=== PATIENT | female | born 1985 | race Caucasian/White ===

== ENCOUNTER 2016-03-23 21:09 | Emergency (ER) | payer MEDICAID, OTHER ==
[2016-03-23 21:20] VITALS: BP 127/79
[2016-03-23] MEDS ORDERED: TYLENOL PO ONE (21:34)
[2016-03-23 22:07] LABS: Basophils % (Auto) 0.5 % (0.0-1.8); Eosinophils % (Auto) 2.6 % (0.0-4.3); Hematocrit 40.4 % (30.3-42.9); Hemoglobin 13.8 gm/dl (10.1-14.3); Mean Corpuscular HGB Conc 34 % (30-34); Mean Corpuscular Hemoglobin 32 pg (28-32); Mean Corpuscular Volume 94 fl (79-97); Platelet Count 305 K/mm3 (140-440); Red Cell Distribution Width 12.4 % (13.2-15.2); White Blood Count 13.7 K/mm3 (4.5-11.0)
[2016-03-23 22:16] LABS: Bacteria,Urine 1+ /HPF (Negative); Bilirubin,Urine NEG (Negative); Blood,Urine LG (Negative); Ketones,Urine NEG (Negative); Leukocyte Esterase,Urine TR (Negative); Mucus,Urine FEW /HPF; Nitrite,Urine NEG (Negative); Protein,Urine <15 mg/dL mg/dL (Negative); Urobilinogen,Urine < 2.0 mg/dL (<2.0)
[2016-03-23 22:21] LABS: Alanine Aminotransferase 23 units/L (7-56); Albumin 4.4 g/dL (3.9-5); Albumin/Globulin Ratio 1.6 %; Alkaline Phosphatase 63 units/L (35-129); Anion Gap 19 mmol/L; BUN/Creatinine Ratio 21.66; Bilirubin,Total < 0.2 mg/dL (0.1-1.2); Blood Urea Nitrogen 13 mg/dL (7-17); Calcium 9.5 mg/dL (8.4-10.2); Carbon Dioxide 25 mmol/L (22-30); Chloride 102.5 mmol/L (98-107); Glucose 109 mg/dL (65-100); Lipase 50 units/L (13-60); Sodium 142 mmol/L (137-145); Total Protein 7.1 g/dL (6.3-8.2)
--- NOTE | 2016-03-25 19:08 | ED Elopement Review ---
ED Pt Elopement review - Results review Lab results: Laboratory Tests 03/23/16 03/23/16 03/23/16 21:47 21:47 21:58 WBC 13.7 H RBC 4.30 Hgb 13.8 Hct 40.4 MCV 94 MCH 32 MCHC 34 RDW 12.4 L Plt Count 305 Lymph % (Auto) 15.6 [place] % (Auto) 7.2 Eos % (Auto) 2.6 Baso % (Auto) 0.5 Lymph # 2.1 [place] # 1.0 H Eos # 0.4 Baso # 0.1 Seg Neutrophils % 74.1 H Seg Neutrophils # 10.1 H Sodium 142 Potassium 4.0 Chloride 102.5 Carbon Dioxide 25 Anion Gap 19 BUN 13 Creatinine 0.6 L Estimated GFR > 60 BUN/Creatinine Ratio 21.66 Glucose 109 H Calcium 9.5 Total Bilirubin < 0.2 AST 17 ALT 23 Alkaline Phosphatase 63 Troponin T < 0.010 Total Protein 7.1 Albumin 4.4 Albumin/Globulin Ratio 1.6 Lipase 50 Urine Color Yellow Urine Turbidity Clear Urine pH 5.0 Ur Specific [place] 1.021 Urine Protein <15 mg/dl Urine Glucose (UA) 50 Urine Ketones Neg Urine Blood Lg Urine Nitrite Neg Ur Reducing Substances Not Reportable Urine Bilirubin Neg Urine Ictotest Not Reportable Urine Urobilinogen < 2.0 Ur Leukocyte Esterase Tr Urine WBC (Auto) 1.0 Urine RBC (Auto) 10.0 U Epithel Cells (Auto) 2.0 Urine Bacteria (Auto) 1+ Urine Mucus Few Urine HCG, Qual Negative - Call Back decision Pt Call Back Decision: No action required
== END 2016-03-23 21:50 | disposition left against medical advice (07) ==
LOC: ED 21:09
DX: R07.9 Chest pain, unspecified (principal); R51 Headache; Z53.21 Procedure and treatment not carried out due to patient leaving prior to being seen by health care provider
CPT/HCPCS: 36415; 80053; 81001; 81025; 83690; 84484; 85025; 93005; 93010

== ENCOUNTER 2016-04-07 18:45 | Emergency (ER) | payer OTHER ==
[2016-04-07 19:46] VITALS: BP 101/52
[2016-04-07 20:14] LABS: Basophils % (Auto) 0.7 % (0.0-1.8); Eosinophils % (Auto) 2.4 % (0.0-4.3); Hematocrit 40.8 % (30.3-42.9); Hemoglobin 14.1 gm/dl (10.1-14.3); Mean Corpuscular HGB Conc 35 % (30-34); Mean Corpuscular Hemoglobin 33 pg (28-32); Mean Corpuscular Volume 95 fl (79-97); Platelet Count 379 K/mm3 (140-440); Red Blood Count 4.29 M/mm3 (3.65-5.03); Red Cell Distribution Width 12.9 % (13.2-15.2); White Blood Count 11.8 K/mm3 (4.5-11.0)
[2016-04-07 20:21] LABS: Bilirubin,Urine NEG (Negative); Blood,Urine MOD (Negative); Ketones,Urine NEG (Negative); Leukocyte Esterase,Urine SM (Negative); Mucus,Urine FEW /HPF; Nitrite,Urine NEG (Negative); Protein,Urine <15 mg/dL mg/dL (Negative); Urobilinogen,Urine < 2.0 mg/dL (<2.0)
[2016-04-07 20:27] LABS: BUN/Creatinine Ratio 21.66; Blood Urea Nitrogen 13 mg/dL (7-17); Calcium 9.5 mg/dL (8.4-10.2); Carbon Dioxide 25 mmol/L (22-30); Chloride 99.5 mmol/L (98-107); Glucose 88 mg/dL (65-100); Potassium 4.3 mmol/L (3.6-5.0); Sodium 137 mmol/L (137-145)
[2016-04-07 20:49] LABS: Anion Gap 17 mmol/L
--- NOTE | 2016-04-07 23:23 | Emergency Department Report ---
ED General Adult HPI - General Chief complaint: Headache Stated complaint: HEADACHE/DIZZY/BLACK SPOTS/NAUSEA/HBP Source: patient Mode of arrival: Ambulatory Limitations: No Limitations - History of Present Illness Initial comments: 30-year-old female comes in complaint of headache that she's had for one month that comes and goes worse on the left temporal area. She also complains of dizziness and black spots that she sees nausea and vomiting. She reports that she vomited a couple times. She does report she has good fluid intake eating well. She does not have a primary care provider. She denies any fever or chills. She reports her pain as a 7 out of 10 view of chart states that her blood pressures within normal limits of 101/52 heart rate 79 temperature is 98.7 - Related Data Previous Rx's Medication Instructions Recorded Last Taken Type Acetaminophen/Codeine 1 tab PO Q6H PRN #20 tab 01/14/14 Unknown Rx [Acetaminophen-Codeine #3 TAB] Amoxicillin [Trimox CAP] 500 mg PO Q8H #30 capsule 01/14/14 Unknown Rx Butalb/Acetaminophen/Caffeine 1 cap PO Q8HR PRN #20 cap 04/08/16 Unknown Rx [Fioricet 50-300-40 mg CAP] Allergies Allergy/AdvReac Type Severity Reaction Status Date / Time aspirin Allergy Unknown Verified 01/14/14 21:15 ED Review of Systems ROS: Stated complaint: HEADACHE/DIZZY/BLACK SPOTS/NAUSEA/HBP Other details as noted in HPI Eyes: other (black spots) Respiratory: no symptoms reported Cardiovascular: denies: chest pain, palpitations, edema Gastrointestinal: nausea, vomiting Neurological: headache ED Past Medical Hx - Past Medical History Hx Hypertension: No Hx Congestive Heart Failure: No Hx Diabetes: No Hx Deep Vein Thrombosis: No Hx Renal Disease: No Hx Sickle Cell Disease: No Hx Seizures: No Hx Asthma: No Hx COPD: No Hx HIV: No - Social History Smoking Status: Never Smoker Substance Use Type: None - Medications Home Medications: Home Medications Medication Instructions Recorded Confirmed Last Taken Type Acetaminophen/Codeine 1 tab PO Q6H PRN #20 tab 01/14/14 Unknown Rx [Acetaminophen-Codeine #3 TAB] Amoxicillin [Trimox CAP] 500 mg PO Q8H #30 capsule 01/14/14 Unknown Rx Butalb/Acetaminophen/Caffeine 1 cap PO Q8HR PRN #20 cap 04/08/16 Unknown Rx [Fioricet 50-300-40 mg CAP] ED Physical Exam - General Limitations: No Limitations General appearance: in no apparent distress - Head Head exam: Present: atraumatic, normocephalic - Eye Eye exam: Present: normal appearance, PERRL, EOMI Pupils: Present: normal accommodation, irregular - ENT ENT exam: Present: mucous membranes moist, TM's normal bilaterally - Expanded ENT Exam Expanded Teeth exam: Present: dental caries (all tubal dental caries) Throat exam: Positive: normal inspection - Respiratory Respiratory exam: Present: normal lung sounds bilaterally. Absent: respiratory distress, wheezes - Cardiovascular Cardiovascular Exam: Present: regular rate, normal rhythm, normal heart sounds ED Course Vital Signs 04/07/16 19:41 Temperature 98.7 F Pulse Rate 79 Respiratory 18 Rate Blood Pressure 101/52 O2 Sat by Pulse 100 Oximetry ED Medical Decision Making - Lab Data Result diagrams: 04/07/16 19:57 04/07/16 19:57 - Medical Decision Making Patient's been evaluated by this provider in fast track. Discussed with Dr. Chavarria that we can do a CAT scan with contrast. Labs are very been done. CAT scan is negative for any masses head bleeds. Refer patient to her primary care provider for further evaluation. Critical care attestation.: If time is entered above; I have spent that time in minutes in the direct care of this critically ill patient, excluding procedure time. ED Disposition Clinical Impression: Headache Qualifiers: Headache type: new daily persistent Qualified Code(s): G44.52 - New daily persistent headache (NDPH) Disposition: DISCHARGED TO HOME OR SELFCARE Is pt being admited?: No Does the pt Need Aspirin: No Condition: Stable Instructions: Aspirin/Caffeine (By mouth) Prescriptions: Butalb/Acetaminophen/Caffeine [Fioricet 50-300-40 mg CAP] 1 cap PO Q8HR PRN #20 cap PRN Reason: Pain Referrals: PRIMARY CARE, [Primary Care Provider] - 3-5 Days JED MERLOS MD [Staff Physician] - 3-5 Days [facility] [Outside] - 3-5 Days [facility] [Outside] - 3-5 Days Forms: Work/School Release Form(ED)
--- NOTE | 2016-04-08 01:15 | Cat Scan Report ---
FINAL REPORT PROCEDURE: CT HEAD/BRAIN W CON TECHNIQUE: Computerized tomography of the head was performed without contrast material. HISTORY: headache with dizziness and black spots COMPARISON: No prior studies are available for comparison. FINDINGS: Skull and scalp: Normal. Paranasal sinuses: Normal. Ventricles and subarachnoid spaces: Normal. Cerebrum: No evidence of hemorrhage, acute infarction or mass . Cerebellum and brainstem: No evidence of hemorrhage, acute infarction or mass. Vasculature: Normal. Comments: None. IMPRESSION: 1. Overall negative CT brain without contrast with no CT evidence of intracranial hemorrhage or edema or shift or acute finding. 2. If there is continued concern for brain abnormality or unexplained symptoms, additional diagnostic evaluation advised only if clinically indicated.
== END 2016-04-08 02:06 | disposition home or self-care (01) ==
LOC: ED 18:45
DX: G44.52 New daily persistent headache (NDPH) (principal)
CPT/HCPCS: 36415; 70460; 80048; 81001; 81025; 85025

== ENCOUNTER 2016-12-02 13:35 | Emergency (ER) | payer SELFPAY ==
[2016-12-02 14:24] LABS: Basophils % (Auto) 0.8 % (0.0-1.8); Eosinophils % (Auto) 2.5 % (0.0-4.3); Hematocrit 40.5 % (30.3-42.9); Hemoglobin 13.7 gm/dl (10.1-14.3); Mean Corpuscular HGB Conc 34 % (30-34); Mean Corpuscular Hemoglobin 32 pg (28-32); Mean Corpuscular Volume 94 fl (79-97); Platelet Count 323 K/mm3 (140-440); Red Blood Count 4.31 M/mm3 (3.65-5.03); Red Cell Distribution Width 12.3 % (13.2-15.2); White Blood Count 11.3 K/mm3 (4.5-11.0)
[2016-12-02 14:48] LABS: Anion Gap 17 mmol/L; Blood Urea Nitrogen 12 mg/dL (7-17); Calcium 8.7 mg/dL (8.4-10.2); Carbon Dioxide 22 mmol/L (22-30); Glucose 101 mg/dL (65-100); Potassium 4.2 mmol/L (3.6-5.0); Sodium 140 mmol/L (137-145)
[2016-12-02] MEDS ORDERED: REGLAN IV ONE (18:46)
[2016-12-02] MEDS ORDERED: BENADRYL IV ONE (18:46)
[2016-12-02] MEDS ORDERED: TORADOL IV ONE (18:46)
--- NOTE | 2016-12-02 21:16 | Emergency Department Report ---
ED General Adult HPI - General Chief complaint: Chest Pain Stated complaint: CHEST PAIN X 3 DAYS Time Seen by Provider: 12/02/16 18:34 Source: patient Mode of arrival: Ambulatory Limitations: No Limitations - History of Present Illness Initial comments: is a 31-year-old female no significant past medical history who presents with chest pain that's been going on for the last couple days. Patient states chest pain is a sharp achy type of pain located bilaterally in her chest. She states that the pain as an 8 out 10 patient states the pain was gradual and got a lot worse today. Patient also states that she has some nausea as well. Patient states that breathing and heavily makes it worse and nothing really makes it better. Severity scale (0 -10): 10 - Related Data Previous Rx's Medication Instructions Recorded Last Taken Type Acetaminophen/Codeine 1 tab PO Q6H PRN #20 tab 01/14/14 Unknown Rx [Acetaminophen-Codeine #3 TAB] Amoxicillin [Trimox CAP] 500 mg PO Q8H #30 capsule 01/14/14 Unknown Rx Butalb/Acetaminophen/Caffeine 1 cap PO Q8HR PRN #20 cap 04/08/16 Unknown Rx [Fioricet 50-300-40 mg CAP] Acetaminophen [Acetaminophen TAB] 1,000 mg PO Q6HR PRN #20 tablet 12/02/16 Unknown Rx Ibuprofen [Motrin 400 MG tab] 400 mg PO Q8H PRN #20 tablet 12/02/16 Unknown Rx Ondansetron [Zofran TAB] 4 mg PO Q8HR PRN #15 tablet 12/02/16 Unknown Rx Allergies Allergy/AdvReac Type Severity Reaction Status Date / Time aspirin Allergy Rash Verified 12/02/16 14:03 ED Review of Systems ROS: Stated complaint: CHEST PAIN X 3 DAYS Other details as noted in HPI Constitutional: denies: chills, fever Eyes: denies: eye pain, eye discharge, vision change ENT: denies: ear pain, throat pain Respiratory: denies: cough, shortness of breath, wheezing Cardiovascular: chest pain. denies: palpitations Endocrine: no symptoms reported Gastrointestinal: nausea. denies: abdominal pain, diarrhea Genitourinary: denies: urgency, dysuria, discharge Musculoskeletal: denies: back pain, joint swelling, arthralgia Skin: denies: rash, lesions Neurological: denies: headache, weakness, paresthesias Psychiatric: denies: anxiety, depression Hematological/Lymphatic: denies: easy bleeding, easy bruising ED Past Medical Hx - Past Medical History Previous Medical History?: Yes Hx Hypertension: No Hx Congestive Heart Failure: No Hx Diabetes: No Hx Deep Vein Thrombosis: No Hx Renal Disease: No Hx Sickle Cell Disease: No Hx Headaches / Migraines: Yes Hx Seizures: No Hx Asthma: No Hx COPD: No Hx HIV: No - Surgical History Past Surgical History?: No - Social History Smoking Status: Current Every Day Smoker Substance Use Type: None - Medications Home Medications: Home Medications Medication Instructions Recorded Confirmed Last Taken Type Acetaminophen/Codeine 1 tab PO Q6H PRN #20 tab 01/14/14 Unknown Rx [Acetaminophen-Codeine #3 TAB] Amoxicillin [Trimox CAP] 500 mg PO Q8H #30 capsule 01/14/14 Unknown Rx Butalb/Acetaminophen/Caffeine 1 cap PO Q8HR PRN #20 cap 04/08/16 Unknown Rx [Fioricet 50-300-40 mg CAP] Acetaminophen [Acetaminophen TAB] 1,000 mg PO Q6HR PRN #20 tablet 12/02/16 Unknown Rx Ibuprofen [Motrin 400 MG tab] 400 mg PO Q8H PRN #20 tablet 12/02/16 Unknown Rx Ondansetron [Zofran TAB] 4 mg PO Q8HR PRN #15 tablet 12/02/16 Unknown Rx ED Physical Exam - General Limitations: No Limitations General appearance: alert, in no apparent distress - Head Head exam: Present: atraumatic, normocephalic - Eye Eye exam: Present: normal appearance - ENT ENT exam: Present: mucous membranes moist - Neck Neck exam: Present: normal inspection - Respiratory Respiratory exam: Present: normal lung sounds bilaterally. Absent: respiratory distress - Cardiovascular Cardiovascular Exam: Present: regular rate, normal rhythm. Absent: systolic murmur, diastolic murmur, rubs, gallop - GI/Abdominal GI/Abdominal exam: Present: soft, normal bowel sounds - Extremities Exam Extremities exam: Present: normal inspection - Back Exam Back exam: Present: normal inspection - Neurological Exam Neurological exam: Present: alert, oriented X3 - Psychiatric Psychiatric exam: Present: normal affect, normal mood - Skin Skin exam: Present: warm, dry, intact, normal color. Absent: rash ED Course Vital Signs 12/02/16 12/02/16 13:54 19:25 Temperature 98 F Pulse Rate 77 Respiratory 16 16 Rate Blood Pressure 116/69 O2 Sat by Pulse 98 Oximetry ED Medical Decision Making - Lab Data Result diagrams: 12/02/16 14:07 12/02/16 14:07 Labs 12/02/16 12/02/16 12/02/16 14:07 14:07 16:29 WBC 11.3 H RBC 4.31 Hgb 13.7 Hct 40.5 MCV 94 MCH 32 MCHC 34 RDW 12.3 L Plt Count 323 Lymph % (Auto) 12.4 [place] % (Auto) 4.8 Eos % (Auto) 2.5 Baso % (Auto) 0.8 Lymph # 1.4 [place] # 0.5 Eos # 0.3 Baso # 0.1 Seg Neutrophils % 79.5 H Seg Neutrophils # 8.9 H Sodium 140 Potassium 4.2 Chloride 105.0 Carbon Dioxide 22 Anion Gap 17 BUN 12 Creatinine 0.5 L Estimated GFR > 60 BUN/Creatinine Ratio 24.00 Glucose 101 H Calcium 8.7 Troponin T < 0.010 < 0.010 12/02/16 20:01 WBC RBC Hgb Hct MCV MCH MCHC RDW Plt Count Lymph % (Auto) [place] % (Auto) Eos % (Auto) Baso % (Auto) Lymph # Gem # Eos # Baso # Seg Neutrophils % Seg Neutrophils # Sodium Potassium Chloride Carbon Dioxide Anion Gap BUN Creatinine Estimated GFR BUN/Creatinine Ratio Glucose Calcium Troponin T < 0.010 - EKG Data -: EKG Interpreted by Ne - EKG Data 12/02/16 21:19 EKG shows normal sinus rhythm no T-wave inversion normal axis no ST segment elevation. - Radiology Data Radiology results: report reviewed, image reviewed Chest x-ray: Shows no acute cardiopulmonary disease - Medical Decision Making Chief medical diagnosis: Costochondritis Differential medical diagnosis: Pneumonia, hypokalemia, pneumothorax CBC, CMP, oral analgesic pain medication, EKG and chest x-ray. Patient's laboratory findings are unremarkable. Considering patient's history and unremarkable laboratory and laboratory's patient most likely has costochondritis. I will send patient home with ibuprofen and Tylenol to take for pain. Also give patient an antiemetic. Discussed return precautions to come to the ED. Additional verbal discharge instructions were given Critical care attestation.: If time is entered above; I have spent that time in minutes in the direct care of this critically ill patient, excluding procedure time. ED Disposition Clinical Impression: Costochondritis, Nausea Disposition: DC-01 TO HOME OR SELFCARE Is pt being admited?: No Does the pt Need Aspirin: No Condition: Stable Instructions: Costochondritis (ED) Prescriptions: Acetaminophen [Acetaminophen TAB] 1,000 mg PO Q6HR PRN #20 tablet PRN Reason: Pain Ibuprofen [Motrin 400 MG tab] 400 mg PO Q8H PRN #20 tablet PRN Reason: Pain Ondansetron [Zofran TAB] 4 mg PO Q8HR PRN #15 tablet PRN Reason: Nausea Referrals: PRIMARY CARE, [Primary Care Provider] - 3-5 Days
[2016-12-02 23:03] VITALS: BP 100/50
--- NOTE | 2016-12-03 10:34 | XRay Report ---
CHEST TWO VIEWS: 12/02/16 18:54 CLINICAL: Chest pain. COMPARISON: None FINDINGS: Normal heart and pulmonary vasculature. The lungs are normally expanded and clear.The bones and soft tissues are unremarkable. IMPRESSION: Normal chest.
== END 2016-12-02 21:45 | disposition home or self-care (01) ==
LOC: ED 13:35
DX: M94.0 Chondrocostal junction syndrome [Tietze] (principal); R11.0 Nausea; G43.909 Migraine, unspecified, not intractable, without status migrainosus; F17.200 Nicotine dependence, unspecified, uncomplicated; Z88.6 Allergy status to analgesic agent
CPT/HCPCS: 36415; 71020; 80048; 84484; 85025; 93005; 93010; 96374; 96375; 99284; J1200; J1885; J2765

== ENCOUNTER 2017-09-25 13:57 | Emergency (ER) | payer OTHER ==
[2017-09-25 15:05] LABS: Hematocrit 41.3 % (30.3-42.9); Hemoglobin 14.4 gm/dl (10.1-14.3); Mean Corpuscular HGB Conc 35 % (30-34); Mean Corpuscular Hemoglobin 33 pg (28-32); Mean Corpuscular Volume 96 fl (79-97); Platelet Count 371 K/mm3 (140-440); Red Blood Count 4.32 M/mm3 (3.65-5.03); Red Cell Distribution Width 12.7 % (13.2-15.2)
--- NOTE | 2017-09-25 17:14 | Emergency Department Report ---
Chief Complaint: Vaginal Bleeding Stated Complaint: ABDOMINAL PAIN/SORE BREAST Time Seen by Provider: 09/25/17 17:06 - HPI History of Present Illness: 31-year-old female presents to the emergency department questioning whether or not she is . She has an implanted contraceptive device. She has been having some abnormal vaginal bleeding and/or menstrual cycles recently. Patient had a late menstrual cycle last month and a negative home test at that time but then did start having some vaginal bleeding. This month she is not supposed to have her menstrual cycle for another 2 weeks but had some heavy vaginal bleeding starting yesterday that is currently just some spotting. She has some lower abdominal and/or pelvic cramping. She took a home test today that she says was positive. She took some Tylenol for her symptoms without much relief. - ROS Review of Systems: Positive for vaginal bleeding, pelvic/abdominal cramping Negative for fever, nausea, vomiting - Exam Vital Signs: Vital Signs 09/25/17 14:16 Temperature 98.6 F Pulse Rate 105 H Respiratory 16 Rate Blood Pressure 131/84 O2 Sat by Pulse 98 Oximetry Physical Exam: Patient does not appear to be in any acute distress. Heart and lung sounds and normal auscultation. There is no tenderness palpation of the abdomen. MSE screening note: Focused history and physical exam performed. Due to findings the following was ordered: CBC does not show any anemia or any significant leukocytosis. The patient does not appear to be with a beta hCG less than 2. She'll have a urinalysis to rule out a urinary tract infection. ED Medical Decision Making - Lab Data Result diagrams: 09/25/17 14:34 ED Disposition for MSE Condition: Stable Referrals: PRIMARY CARE [Primary Care Provider] - 3-5 Days
[2017-09-25 18:20] LABS: Bilirubin,Urine NEG (Negative); Blood,Urine LG (Negative); Color,Urine Yellow (Yellow); Mucus,Urine FEW /HPF; Protein,Urine <15 mg/dL mg/dL (Negative)
--- NOTE | 2017-09-25 19:00 | Emergency Department Report ---
HPI - General Chief Complaint: Vaginal Bleeding Time Seen by Provider: 09/25/17 17:06 - HPI HPI: 31-year-old female presents to the emergency department questioning whether or not she is . She has an implanted contraceptive device. She has been having some abnormal vaginal bleeding and/or menstrual cycles recently. Patient had a late menstrual cycle last month and a negative home test at that time but then did start having some vaginal bleeding. This month she is not supposed to have her menstrual cycle for another 2 weeks but had some heavy vaginal bleeding starting yesterday that is currently just some spotting. She has some lower abdominal and/or pelvic cramping. She took a home test today that she says was positive. She took some Tylenol for her symptoms without much relief. ED Past Medical Hx - Past Medical History Hx Hypertension: No Hx Congestive Heart Failure: No Hx Diabetes: No Hx Deep Vein Thrombosis: No Hx Renal Disease: No Hx Sickle Cell Disease: No Hx Headaches / Migraines: Yes Hx Seizures: No Hx Asthma: No Hx COPD: No Hx HIV: No - Surgical History Past Surgical History?: No - Social History Smoking Status: Current Every Day Smoker Substance Use Type: None - Medications Home Medications: Home Medications Medication Instructions Recorded Confirmed Last Taken Type Acetaminophen/Codeine 1 tab PO Q6H PRN #20 tab 01/14/14 Unknown Rx [Acetaminophen-Codeine #3 TAB] Amoxicillin [Trimox CAP] 500 mg PO Q8H #30 capsule 01/14/14 Unknown Rx Butalb/Acetaminophen/Caffeine 1 cap PO Q8HR PRN #20 cap 04/08/16 Unknown Rx [Fioricet 50-300-40 mg CAP] Acetaminophen [Acetaminophen TAB] 1,000 mg PO Q6HR PRN #20 tablet 12/02/16 Unknown Rx Ibuprofen [Motrin 400 MG tab] 400 mg PO Q8H PRN #20 tablet 12/02/16 Unknown Rx Ondansetron [Zofran TAB] 4 mg PO Q8HR PRN #15 tablet 12/02/16 Unknown Rx ED Review of Systems ROS: Stated complaint: ABDOMINAL PAIN/SORE BREAST Other details as noted in HPI Comment: All other systems reviewed and negative Constitutional: denies: chills, fever Eyes: denies: eye pain, eye discharge, vision change ENT: denies: ear pain, throat pain Respiratory: denies: cough, shortness of breath, wheezing Cardiovascular: denies: chest pain, palpitations Gastrointestinal: abdominal pain. denies: vomiting Genitourinary: other (vaginal bleeding). denies: discharge Musculoskeletal: denies: back pain, joint swelling, arthralgia Skin: denies: rash, lesions Neurological: denies: headache, weakness, paresthesias Physical Exam - Physical Exam Vital Signs: Vital Signs 09/25/17 14:16 Temperature 98.6 F Pulse Rate 105 H Respiratory 16 Rate Blood Pressure 131/84 O2 Sat by Pulse 98 Oximetry Physical Exam: GENERAL: The patient is well-developed well-nourished. HENT: Normocephalic. Atraumatic. Patient has moist mucous membranes. EYES: Extraocular motions are intact. NECK: Supple. Trachea is midline. CHEST/LUNGS: Clear to auscultation. There is no respiratory distress noted. HEART/CARDIOVASCULAR: Regular. There is no tachycardia. There is no murmur. ABDOMEN: Abdomen is soft, nontender. Patient has normal bowel sounds. There is no abdominal distention. SKIN: Skin is warm and dry. NEURO: The patient is awake, alert, and oriented. The patient is cooperative. The patient has no focal neurologic deficits. The patient has normal speech and gait. MUSCULOSKELETAL: There is no tenderness or deformity. There is no evidence of acute injury. ED Course Vital Signs 09/25/17 14:16 Temperature 98.6 F Pulse Rate 105 H Respiratory 16 Rate Blood Pressure 131/84 O2 Sat by Pulse 98 Oximetry ED Medical Decision Making - Lab Data Result diagrams: 09/25/17 14:34 - Medical Decision Making This is a 31-year-old female presents for a test as she has been having some symptoms of and some abnormal vaginal bleeding and the patient had a recent positive home test. She does not appear in any acute distress. She has some mild lower abdominal and/or pelvic cramping but no significant and/or sharp pains. The bleeding has slowed up to where it is only spotting. CBC does not show any signs of anemia and is in fact normal and there is no leukocytosis. Quantitative level was less than 2 and therefore negative and she does not appear to be . Urinalysis shows a very small amount of hematuria on a microscopic level but no urinary tract infection. Vital signs stable throughout her ED course including being afebrile. The patient will be given referrals for RN PERIOPERATIVE for removal of the implanted contraceptive and for this dysfunctional uterine bleeding. She will return to the ER with any worsening of her symptoms or any acute distress. - Differential Diagnosis , miscarriage, fibroids, dysfunctional uterine bleeding Critical Care Time: No Critical care attestation.: If time is entered above; I have spent that time in minutes in the direct care of this critically ill patient, excluding procedure time. ED Disposition Clinical Impression: Dysfunctional uterine bleeding, Dysmenorrhea Disposition: TO HOME OR SELFCARE Is pt being admited?: No Condition: Stable Instructions: Dysfunctional Uterine Bleeding (ED) Additional Instructions: Please follow up with an RN PERIOPERATIVE provider in the next few days. It is also recommended that you follow up with a primary care physician. Return to the emergency Department with any worsening of your symptoms or any acute distress. Referrals: PRIMARY CAREM[facility] [Primary Care Provider] - 3-5 Days [facility] [Provider Group] - 3-5 Days [facility] [Provider Group] - 3-5 Days Time of Disposition: 19:00
[2017-09-25 19:14] VITALS: BP 131/81
== END 2017-09-25 19:14 | disposition home or self-care (01) ==
LOC: ED 13:57
DX: N94.6 Dysmenorrhea, unspecified (principal); N93.8 Other specified abnormal uterine and vaginal bleeding; Z88.6 Allergy status to analgesic agent
CPT/HCPCS: 36415; 81001; 84702; 85027; 86900; 86901; 99283

== ENCOUNTER 2017-12-13 11:04 | Emergency (ER) | payer SELFPAY ==
[2017-12-13 11:41] VITALS: BP 120/73
== END 2017-12-13 12:20 | disposition left against medical advice (07) ==
LOC: ED 11:04
DX: R51 Headache (principal); Z53.21 Procedure and treatment not carried out due to patient leaving prior to being seen by health care provider

== ENCOUNTER 2019-04-01 20:52 | Emergency (ER) | payer OTHER ==
--- NOTE | 2019-04-01 21:25 | Emergency Department Report ---
Blank Doc - Documentation Documentation: 33-year-old female that presents with vaginal spotting and pelvic pain. This initial assessment/diagnostic orders/clinical plan/treatment(s) is/are subject to change based on patient's health status, clinical progression and re- assessment by fellow clinical providers in the ED. Further treatment and workup at subsequent clinical providers discretion. Patient/guardians urged not to elope from the ED as their condition may be serious if not clinically assessed and managed. Initial orders include: 1- Patient sent to [facility] for further evaluation and treatment 2- UA
[2019-04-01 21:52] LABS: Bacteria,Urine 1+ /HPF (Negative); Bilirubin,Urine NEG (Negative); Blood,Urine MOD (Negative); Color,Urine Yellow (Yellow); Mucus,Urine FEW /HPF; Protein,Urine <15 mg/dL mg/dL (Negative)
[2019-04-01 22:04] LABS: HCG Qualitative,Urine Positive (Negative)
[2019-04-02 01:26] VITALS: BP 108/49
--- NOTE | 2019-04-02 02:50 | Emergency Department Report ---
ED Abdominal Pain HPI - General Chief Complaint: Abdominal Pain Stated Complaint: SPOTTING,CRAMPING,GOODWIN Time Seen by Provider: 04/01/19 21:24 Source: patient Mode of arrival: Ambulatory Limitations: No Limitations - History of Present Illness Initial Comments: Ms. Montenegro is a 33 y/o female who presents for vaginal spotting x 2 days. There is no fever no chills no n/v. Spotting is pink and scant amount, pt is P5, G5, A0, LMP 8 weeks ago. Symptoms are exacerbated by nothing, symptoms relieved by nothing tried. MD Complaint: abdominal pain Onset/Timin -: days(s) Location: suprapubic Radiation: suprapubic Migration to: no migration Severity scale (0 -10): 4 Quality: cramping Consistency: constant Improves With: nothing Worsens With: nothing Associated Symptoms: denies: nausea, vomiting, diarrhea, fever, chills, dysuria - Related Data LMP Date: 01/07/19 Previous Rx's Medication Instructions Recorded Last Taken Type Acetaminophen/Codeine 1 tab PO Q6H PRN #20 tab 01/14/14 Unknown Rx [Acetaminophen-Codeine #3 TAB] Amoxicillin [Trimox CAP] 500 mg PO Q8H #30 capsule 01/14/14 Unknown Rx Butalb/Acetaminophen/Caffeine 1 cap PO Q8HR PRN #20 cap 04/08/16 Unknown Rx [Fioricet 50-300-40 mg CAP] Acetaminophen [Acetaminophen TAB] 1,000 mg PO Q6HR PRN #20 tablet 12/02/16 Unknown Rx Ibuprofen [Motrin 400 MG tab] 400 mg PO Q8H PRN #20 tablet 12/02/16 Unknown Rx Ondansetron [Zofran TAB] 4 mg PO Q8HR PRN #15 tablet 12/02/16 Unknown Rx Acetaminophen [Tylenol] 650 mg PO Q6HR PRN #30 tablet 04/02/19 Unknown Rx Allergies Allergy/AdvReac Type Severity Reaction Status Date / Time aspirin Allergy Rash Verified 12/02/16 14:03 ED Review of Systems ROS: Stated complaint: SPOTTING,CRAMPING,GOODWIN Other details as noted in HPI Constitutional: denies: chills, fever Eyes: denies: eye pain, eye discharge, vision change ENT: denies: ear pain, throat pain Respiratory: denies: cough, shortness of breath, wheezing Cardiovascular: denies: chest pain, palpitations Endocrine: no symptoms reported Gastrointestinal: abdominal pain (cramping ). denies: nausea, vomiting, diarrhea Genitourinary: denies: urgency, dysuria, frequency, hematuria, discharge Musculoskeletal: denies: back pain, joint swelling, arthralgia Skin: denies: rash, lesions Neurological: denies: headache, weakness, paresthesias Psychiatric: denies: anxiety, depression Hematological/Lymphatic: denies: easy bleeding, easy bruising ED Past Medical Hx - Past Medical History Previous Medical History?: Yes Hx Hypertension: No Hx Congestive Heart Failure: No Hx Diabetes: No Hx Deep Vein Thrombosis: No Hx Renal Disease: No Hx Sickle Cell Disease: No Hx Headaches / Migraines: Yes Hx Seizures: No Hx Asthma: No Hx COPD: No Hx HIV: No - Surgical History Past Surgical History?: No - Social History Smoking Status: Current Every Day Smoker Substance Use Type: None - Medications Home Medications: Home Medications Medication Instructions Recorded Confirmed Last Taken Type Acetaminophen/Codeine 1 tab PO Q6H PRN #20 tab 01/14/14 Unknown Rx [Acetaminophen-Codeine #3 TAB] Amoxicillin [Trimox CAP] 500 mg PO Q8H #30 capsule 01/14/14 Unknown Rx Butalb/Acetaminophen/Caffeine 1 cap PO Q8HR PRN #20 cap 04/08/16 Unknown Rx [Fioricet 50-300-40 mg CAP] Acetaminophen [Acetaminophen TAB] 1,000 mg PO Q6HR PRN #20 tablet 12/02/16 Unknown Rx Ibuprofen [Motrin 400 MG tab] 400 mg PO Q8H PRN #20 tablet 12/02/16 Unknown Rx Ondansetron [Zofran TAB] 4 mg PO Q8HR PRN #15 tablet 12/02/16 Unknown Rx Acetaminophen [Tylenol] 650 mg PO Q6HR PRN #30 tablet 04/02/19 Unknown Rx ED Physical Exam - General Limitations: No Limitations General appearance: alert, in no apparent distress - Head Head exam: Present: atraumatic, normocephalic - Eye Eye exam: Present: normal appearance, PERRL, EOMI - ENT ENT exam: Present: mucous membranes moist - Neck Neck exam: Present: normal inspection, full ROM. Absent: tenderness - Respiratory Respiratory exam: Present: normal lung sounds bilaterally. Absent: respiratory distress, wheezes, chest wall tenderness - Cardiovascular Cardiovascular Exam: Present: regular rate, normal rhythm, normal heart sounds. Absent: systolic murmur, diastolic murmur, rubs, gallop - GI/Abdominal GI/Abdominal exam: Present: soft, normal bowel sounds. Absent: distended, tenderness, guarding, rebound, rigid, bruit, hernia - Rectal Rectal exam: Present: deferred - External exam: Present: other (pt deferrs to OBGYN ) - Extremities Exam Extremities exam: Present: normal inspection - Back Exam Back exam: Present: normal inspection, full ROM. Absent: tenderness, CVA tenderness (R), CVA tenderness (L) - Neurological Exam Neurological exam: Present: alert, oriented X3, CN II-XII intact, normal gait - Psychiatric Psychiatric exam: Present: normal affect, normal mood - Skin Skin exam: Present: warm, dry, intact, normal color. Absent: rash ED Course Vital Signs 04/01/19 04/01/19 04/02/19 21:00 21:13 01:05 Temperature 98.2 F 98.2 F Pulse Rate 98 H 101 H 80 Respiratory 16 18 18 Rate Blood Pressure 108/57 108/57 Blood Pressure 108/49 [Left] O2 Sat by Pulse 98 100 100 Oximetry ED Medical Decision Making - Radiology Data Radiology results: report reviewed, image reviewed Ordering Physician: LENA OCHOA NP Date of Service: 04/01/19 Procedure(s): US OB <= 14 weeks fetus Accession Number(s): [id number] cc: LENA OCHOA NP ULTRASOUND OBSTETRIC Indication: abd/pelvic pain Findings: There is a single, living intrauterine . [place]-rump length = 0.57 cm = 6 weeks, 3 day(s). heart rate is 121 beats per minute. The ovaries are normal. There is no free fluid. Small fibroid is noted in the posterior aspect of the uterus Impression: Single, living intrauterine with estimated sonographic age of 6 weeks, 3 day(s). Signer Name: Leo Maria MD Signed: 04/02/2019 3:10 AM Workstation Name: [id number] Transcribed By: Dictated By: Leo Maria MD Electronically Authenticated By: Leo Maria MD Signed Date/Time: 04/02/19309 DD/ 6 TD/TT: - Medical Decision Making US: IUP 6 weeks and 2 days, FHR: 117 bpm, left ovarian cyst, plan: tylenol prn follow up with OBGYN , Dx Threatend Miscarriage, Vaginal bleeding during pt defers vaginal exam will follow up with OBGYN in 2 days, pt verbalized agreement and understanding of discharge plan. Critical care attestation.: If time is entered above; I have spent that time in minutes in the direct care of this critically ill patient, excluding procedure time. ED Disposition Clinical Impression: Threatened miscarriage in early Ovarian cyst Qualifiers: Laterality: right Qualified Code(s): N83.201 - Unspecified ovarian cyst, right side Disposition: TO HOME OR SELFCARE Is pt being admited?: No Does the pt Need Aspirin: No Condition: Stable Instructions: Threatened Miscarriage (ED), Ovarian Cyst (ED) Additional Instructions: 6 weeks and 3 days Prescriptions: Acetaminophen [Tylenol] 650 mg PO Q6HR PRN #30 tablet PRN Reason: Pain Referrals: [facility] [Provider Group] - 3-5 Days Forms: Work/School Release Form(ED) Time of Disposition: 03:37
--- NOTE | 2019-04-02 03:15 | Ultrasound Report ---
ULTRASOUND OBSTETRIC Indication: abd/pelvic pain Findings: There is a single, living intrauterine . [place]-rump length = 0.57 cm = 6 weeks, 3 day(s). heart rate is 121 beats per minute. The ovaries are normal. There is no free fluid. Small fibroid is noted in the posterior aspect of the uterus Impression: Single, living intrauterine with estimated sonographic age of 6 weeks, 3 day(s). Signer Name: Leo Maria MD Signed: 04/02/2019 3:10 AM Workstation Name: [email or web address]
--- NOTE | 2019-04-02 03:15 | Ultrasound Report ---
ULTRASOUND OBSTETRIC Indication: abd/pelvic pain Findings: There is a single, living intrauterine . [place]-rump length = 0.57 cm = 6 weeks, 3 day(s). heart rate is 121 beats per minute. The ovaries are normal. There is no free fluid. Small fibroid is noted in the posterior aspect of the uterus Impression: Single, living intrauterine with estimated sonographic age of 6 weeks, 3 day(s). Signer Name: Leo Maria MD Signed: 04/02/2019 3:10 AM Workstation Name: [email or web address]
== END 2019-04-02 03:50 | disposition home or self-care (01) ==
LOC: ED 20:52
DX: O20.0 Threatened abortion (principal); N83.201 Unspecified ovarian cyst, right side; G43.909 Migraine, unspecified, not intractable, without status migrainosus; F17.200 Nicotine dependence, unspecified, uncomplicated; Z88.6 Allergy status to analgesic agent; Z79.899 Other long term (current) drug therapy
CPT/HCPCS: 36415; 76801; 76817; 81001; 81025; 84702

== ENCOUNTER 2019-05-21 16:35 | Emergency (ER) | payer SELFPAY ==
--- NOTE | 2019-05-21 16:44 | Emergency Department Report ---
Blank Doc - Documentation Documentation: 33-year-old female that presents with vaginal bleeding and pelvic pain. Stated is 16 weeks . This initial assessment/diagnostic orders/clinical plan/treatment(s) is/are subject to change based on patient's health status, clinical progression and re- assessment by fellow clinical providers in the ED. Further treatment and workup at subsequent clinical providers discretion. Patient/guardians urged not to elope from the ED as their condition may be serious if not clinically assessed and managed. Initial orders include: 1- Patient sent to [facility] for further evaluation and treatment 2- UA 3- US OB 4- labs
[2019-05-21 17:34] LABS: Basophils % (Auto) 0.4 % (0.0-1.8); Eosinophils # (Auto) 0.2 K/mm3 (0.0-0.4); Eosinophils % (Auto) 1.6 % (0.0-4.3); Hematocrit 37.8 % (30.3-42.9); Lymphocytes # (Auto) 1.1 K/mm3 (1.2-5.4); Mean Corpuscular HGB Conc 34 % (30-34); Mean Corpuscular Volume 96 fl (79-97); Monocytes # (Auto) 0.4 K/mm3 (0.0-0.8); Monocytes % (Auto) 3.6 % (0.0-7.3); Platelet Count 382 K/mm3 (140-440); Red Blood Count 3.93 M/mm3 (3.65-5.03); Red Cell Distribution Width 13.4 % (13.2-15.2)
--- NOTE | 2019-05-21 17:52 | Ultrasound Report ---
OB ultrasound FINDINGS: Single fetus is identified in variable presentation. Amniotic fluid volume appears adequate . No gross anomalies are seen. Placenta is anterior and fundal. heart rate is 146 bpm. No hemor rhage is seen. Appropriate measurements reveal an MA of 14 weeks 2 days for an EDC of 11/17/2019. This is slightly behind the clinical dates. No definite abnormality. Signer Name: Pedrito Martínez MD Signed: 05/21/2019 5:47 PM Workstation Name: [id number]
--- NOTE | 2019-05-21 18:02 | Emergency Department Report ---
ED HPI - General Chief complaint: Vaginal Bleeding Stated complaint: 16WEEKS PREG/BLEEDING CRAMPING Time Seen by Provider: 05/21/19 16:42 Source: patient Mode of arrival: Ambulatory Limitations: No Limitations - History of Present Illness Initial comments: Patient states that she is approximately 16 weeks but has not seen [facility] yet for this and this morning developed some intermittent cramping and slight bleeding. Denies any dysuria, frequency, vomiting, fevers or any other complaints. She states that she does have an [facility] appointment but not until next week. -: Gradual, hour(s) Location: pelvis Radiation: none Severity: mild Severity scale (0 -10): 3 Quality: cramping Consistency: intermittent Improves with: none Worsens with: none Associated symptoms: denies other symptoms Vaginal bleeding: light :: Yes Number of weeks : 16 OB History - Current : no complications Pre- care: none - Related Data Previous Rx's Medication Instructions Recorded Last Taken Type Acetaminophen/Codeine 1 tab PO Q6H PRN #20 tab 01/14/14 Unknown Rx [Acetaminophen-Codeine #3 TAB] Amoxicillin [Trimox CAP] 500 mg PO Q8H #30 capsule 01/14/14 Unknown Rx Butalb/Acetaminophen/Caffeine 1 cap PO Q8HR PRN #20 cap 04/08/16 Unknown Rx [Fioricet 50-300-40 mg CAP] Acetaminophen [Acetaminophen TAB] 1,000 mg PO Q6HR PRN #20 tablet 12/02/16 Unknown Rx Ibuprofen [Motrin 400 MG tab] 400 mg PO Q8H PRN #20 tablet 12/02/16 Unknown Rx Ondansetron [Zofran TAB] 4 mg PO Q8HR PRN #15 tablet 12/02/16 Unknown Rx Acetaminophen [Tylenol] 650 mg PO Q6HR PRN #30 tablet 04/02/19 Unknown Rx Allergies Allergy/AdvReac Type Severity Reaction Status Date / Time aspirin Allergy Rash Verified 12/02/16 14:03 ED Review of Systems ROS: Stated complaint: 16WEEKS PREG/BLEEDING CRAMPING Other details as noted in HPI Comment: All other systems reviewed and negative Genitourinary: as per HPI ED Past Medical Hx - Past Medical History Hx Hypertension: No Hx Congestive Heart Failure: No Hx Diabetes: No Hx Deep Vein Thrombosis: No Hx Renal Disease: No Hx Sickle Cell Disease: No Hx Headaches / Migraines: Yes Hx Seizures: No Hx Asthma: No Hx COPD: No Hx HIV: No - Surgical History Past Surgical History?: No - Social History Smoking Status: Never Smoker Substance Use Type: None - Medications Home Medications: Home Medications Medication Instructions Recorded Confirmed Last Taken Type Acetaminophen/Codeine 1 tab PO Q6H PRN #20 tab 01/14/14 Unknown Rx [Acetaminophen-Codeine #3 TAB] Amoxicillin [Trimox CAP] 500 mg PO Q8H #30 capsule 01/14/14 Unknown Rx Butalb/Acetaminophen/Caffeine 1 cap PO Q8HR PRN #20 cap 04/08/16 Unknown Rx [Fioricet 50-300-40 mg CAP] Acetaminophen [Acetaminophen TAB] 1,000 mg PO Q6HR PRN #20 tablet 12/02/16 Unknown Rx Ibuprofen [Motrin 400 MG tab] 400 mg PO Q8H PRN #20 tablet 12/02/16 Unknown Rx Ondansetron [Zofran TAB] 4 mg PO Q8HR PRN #15 tablet 12/02/16 Unknown Rx Acetaminophen [Tylenol] 650 mg PO Q6HR PRN #30 tablet 04/02/19 Unknown Rx ED Physical Exam - General Limitations: No Limitations General appearance: alert, in no apparent distress - Head Head exam: Present: atraumatic, normocephalic - Eye Eye exam: Present: normal appearance - ENT ENT exam: Present: mucous membranes moist - Neck Neck exam: Present: normal inspection - Respiratory Respiratory exam: Present: normal lung sounds bilaterally. Absent: respiratory distress - Cardiovascular Cardiovascular Exam: Present: regular rate, normal rhythm. Absent: systolic murmur, diastolic murmur, rubs, gallop - GI/Abdominal GI/Abdominal exam: Present: soft (Obese, gravid), normal bowel sounds. Absent: distended, tenderness - Extremities Exam Extremities exam: Present: normal inspection - Back Exam Back exam: Present: normal inspection - Neurological Exam Neurological exam: Present: alert, oriented X3 - Psychiatric Psychiatric exam: Present: normal affect, normal mood - Skin Skin exam: Present: warm, dry, intact, normal color. Absent: rash ED Course Vital Signs 05/21/19 16:38 Temperature 98.5 F Pulse Rate 109 H Respiratory 18 Rate Blood Pressure 148/82 [Left] O2 Sat by Pulse 98 Oximetry ED Medical Decision Making - Lab Data Result diagrams: 05/21/19 16:51 - Radiology Data Single viable intrauterine without focal abnormality - Medical Decision Making 33-year-old female presenting with vaginal bleeding/spotting in . Exam is benign. Ultrasounds obtained showing a normal intrauterine . I counseled the patient on the need for complete pelvic rest until she is seen by [facility] and this is recommended to be done in the next 2 to 3 days. Patient declines urinalysis, just wanted to make sure US was ok. Return precautions given. BP 113/70 at d/c - Differential Diagnosis Threatened miscarriage, miscarriage Critical care attestation.: If time is entered above; I have spent that time in minutes in the direct care of this critically ill patient, excluding procedure time. ED Disposition Clinical Impression: Threatened miscarriage Disposition: DC-01 TO HOME OR SELFCARE Is pt being admited?: No Condition: Good Instructions: Threatened Miscarriage (ED) Referrals: INGA GRUBER MD [Staff Physician] - 2-3 Days Time of Disposition: 18:00
[2019-05-21 18:03] VITALS: BP 113/70
== END 2019-05-21 18:04 | disposition home or self-care (01) ==
LOC: ED 16:35
DX: O20.0 Threatened abortion (principal); G43.909 Migraine, unspecified, not intractable, without status migrainosus; Z79.899 Other long term (current) drug therapy; Z88.6 Allergy status to analgesic agent; Z3A.16 16 weeks gestation of pregnancy
CPT/HCPCS: 36415; 76801; 84702; 85025; 86900; 86901

== ENCOUNTER 2019-07-03 20:17 | Outpatient (CLI) | payer MEDICAID ==
[2019-07-03 20:39] VITALS: BP 107/58
[2019-07-03] MEDS ORDERED: LACTATED RINGERS 1,000 ML IV ONE (20:55)
[2019-07-03 21:23] LABS: Bilirubin,Urine NEG (Negative); Blood,Urine MOD (Negative); Color,Urine Yellow (Yellow); Mucus,Urine FEW /HPF; Protein,Urine <15 mg/dL mg/dL (Negative); WBC,Urine < 1.0 /HPF (0.0-6.0)
[2019-07-03 21:34] LABS: Amphetamine Screen,Urine PRESUMPTIVE NEGATIVE; Benzodiazepines Screen,Urine PRESUMPTIVE NEGATIVE; Cannabinoid Screen,Urine PRESUMPTIVE NEGATIVE; Cocaine Screen,Urine PRESUMPTIVE NEGATIVE; Methadone Screen,Urine PRESUMPTIVE NEGATIVE; Opiate Screen,Urine PRESUMPTIVE NEGATIVE
== END 2019-07-03 22:30 | disposition home or self-care (01) ==
LOC: TRG 20:17 → APU 20:28 → TRG 22:30
PROVIDERS: ATTEND Obstetrics & Gynecology
DX: O26.852 Spotting complicating pregnancy, second trimester (principal); Z3A.22 22 weeks gestation of pregnancy; Z87.891 Personal history of nicotine dependence
CPT/HCPCS: 59025; 80307; 81001; 96360; J7120

== ENCOUNTER 2019-10-05 22:34 | Outpatient (CLI) | payer MEDICAID ==
[2019-10-05 23:28] VITALS: BP 107/59
[2019-10-05] MEDS ORDERED: LACTATED RINGERS 1,000 ML IV ONE (23:48)
--- NOTE | 2019-10-06 01:42 | Event Note ---
Date: 10/06/19 This is not my patient and I did not tell the nurse I would be there shortly to assess her. Letty Ordonez CNM
[2019-10-06] MEDS ORDERED: HYDROcodone/ACETAMINOPHEN 5-325 MG TAB PO ONE (02:07)
[2019-10-06 03:38] LABS: Bilirubin,Urine NEG (Negative); Blood,Urine NEG (Negative); Color,Urine Yellow (Yellow); Mucus,Urine FEW /HPF
== END 2019-10-06 04:15 | disposition left against medical advice (07) ==
LOC: TRG 22:34 → APU 23:16 → TRG 10-06 04:15
PROVIDERS: ATTEND Obstetrics & Gynecology
DX: O26.893 Other specified pregnancy related conditions, third trimester (principal); R10.9 Unspecified abdominal pain; R10.2 Pelvic and perineal pain; Z3A.35 35 weeks gestation of pregnancy
CPT/HCPCS: 59025; 81001; 82962; 87086

== ENCOUNTER 2021-07-02 21:20 | Emergency (ER) | payer MEDICAID, OTHER ==
[2021-07-02 21:25] VITALS: BP 151/92
== END 2021-07-04 16:43 | disposition home or self-care (01) ==
LOC: ED 21:20
DX: N64.59 Other signs and symptoms in breast (principal); Z53.21 Procedure and treatment not carried out due to patient leaving prior to being seen by health care provider

== ENCOUNTER 2021-09-08 23:24 | Emergency (ER) | payer MEDICAID ==
[2021-09-08 23:37] VITALS: BP 135/96
== END 2021-09-09 19:00 | disposition left against medical advice (07) ==
LOC: ED 23:24
DX: R51.9 Headache, unspecified (principal); R07.89 Other chest pain; Z53.21 Procedure and treatment not carried out due to patient leaving prior to being seen by health care provider

== ENCOUNTER 2021-11-02 18:35 | Emergency (ER) | payer MEDICAID ==
--- NOTE | 2021-11-02 22:17 | XRay Report ---
CHEST 2 VIEWS INDICATION / CLINICAL INFORMATION: Chest Pain. COMPARISON: 12/02/2016 FINDINGS: SUPPORT DEVICES: None. HEART / MEDIASTINUM: No significant abnormality. LUNGS / PLEURA: No significant pulmonary or pleural abnormality. No pneumothorax. ADDITIONAL FINDINGS: Safety pin seen at the level of the neck on frontal view is present with externa l to the patient. IMPRESSION: 1. No acute findings. Signer Name: Gregorio Stoll MD Signed: 11/02/2021 10:13 PM Workstation Name: [id number]
[2021-11-02 22:28] LABS: Blood Urea Nitrogen 13 mg/dL (7-17); Calcium 9.2 mg/dL (8.4-10.2); Hemolysis Index 36
[2021-11-02 22:29] LABS: BUN/Creatinine Ratio 22
[2021-11-02 22:42] LABS: Basophils # (Auto) 0.1 K/mm3 (0.0-0.1); Basophils % (Auto) 0.7 % (0.0-1.8); Eosinophils # (Auto) 0.3 K/mm3 (0.0-0.4); Eosinophils % (Auto) 3.4 % (0.0-4.3); Hematocrit 38.5 % (30.3-42.9); Hemoglobin 13.1 gm/dl (10.1-14.3); Lymphocytes # (Auto) 1.9 K/mm3 (1.2-5.4); Lymphocytes % (Auto) 19.7 % (13.4-35.0); Mean Corpuscular HGB Conc 34 % (30-34); Mean Corpuscular Volume 97 fl (79-97); Monocytes # (Auto) 0.5 K/mm3 (0.0-0.8); Platelet Count 396 K/mm3 (140-440); Red Blood Count 3.99 M/mm3 (3.65-5.03)
[2021-11-03] MEDS ORDERED: ACETAMINOPHEN 500 MG TAB PO ONE (00:48)
--- NOTE | 2021-11-03 00:57 | Emergency Department Report ---
ED General Adult HPI - General Chief complaint: Chest Pain Stated complaint: CHEST PAIN Time Seen by Provider: 11/03/21 00:46 Source: patient Mode of arrival: Ambulatory Limitations: No Limitations - History of Present Illness Initial comments: Patient 35-year-old female who is a [id number] smoker who presents for chest wall pain with cough cough productive of white clear X1 episode of blood- streaked or blood-tinged sputum today. There is been no fevers no chills no malaise. There is no shortness of breath no wheezing no dizziness or lightheadedness. There is been no nausea or vomiting. Symptoms are exacerbated by coughing and deep inspiration. Symptoms are relieved by nothing tried. Denies history of asthma or bronchitis. Been no wheezing or stridor. - Related Data Home Medications Medication Instructions Recorded Confirmed Last Taken metFORMIN 500 mg PO BID 10/16/19 10/16/19 10/16/19 09:00 Previous Rx's Medication Instructions Recorded Last Taken Type Acetaminophen/Codeine 1 tab PO Q6H PRN #20 tab 01/14/14 09/04/19 Rx [Acetaminophen-Codeine #3 TAB] Amoxicillin [Trimox CAP] 500 mg PO Q8H #30 capsule 01/14/14 09/04/19 Rx Butalb/Acetaminophen/Caffeine 1 cap PO Q8HR PRN #20 cap 04/08/16 07/05/19 Rx [Fioricet 50-300-40 mg CAP] Acetaminophen [Acetaminophen TAB] 1,000 mg PO Q6HR PRN #20 tablet 12/02/16 09/04/19 Rx Ibuprofen [Motrin 400 MG tab] 400 mg PO Q8H PRN #20 tablet 12/02/16 09/04/19 Rx Ondansetron [Zofran TAB] 4 mg PO Q8HR PRN #15 tablet 12/02/16 10/05/19 Rx Acetaminophen [Tylenol] 650 mg PO Q6HR PRN #30 tablet 04/02/19 09/05/19 Rx Ibuprofen [Motrin 800 MG tab] 800 mg PO Q8HR PRN #30 tablet 11/03/21 Unknown Rx guaiFENesin [Guaifenesin] 400 mg PO Q8H PRN #20 tab 11/03/21 Unknown Rx Allergies Allergy/AdvReac Type Severity Reaction Status Date / Time aspirin Allergy Rash Verified 12/02/16 14:03 ED Review of Systems ROS: Stated complaint: CHEST PAIN Other details as noted in HPI Constitutional: denies: chills, fever Eyes: denies: eye pain, eye discharge, vision change ENT: denies: ear pain, throat pain Respiratory: no symptoms reported Cardiovascular: chest pain (With cough and deep inspiration). denies: palpitations, orthopnea, paroxysmal nocturnal dyspnea Endocrine: no symptoms reported Gastrointestinal: as per HPI. denies: abdominal pain, nausea, vomiting Genitourinary: denies: urgency, dysuria, discharge Musculoskeletal: denies: back pain, joint swelling, arthralgia Skin: denies: rash, lesions Neurological: denies: headache, weakness, paresthesias Psychiatric: denies: anxiety, depression Hematological/Lymphatic: denies: easy bleeding, easy bruising ED Past Medical Hx - Past Medical History Hx Hypertension: No Hx Congestive Heart Failure: No Hx Diabetes: No Hx Deep Vein Thrombosis: No Hx Renal Disease: No Hx Sickle Cell Disease: No Hx Headaches / Migraines: Yes Hx Seizures: No Hx Asthma: No Hx COPD: No Hx HIV: No - Social History Smoking Status: Unknown if ever smoked - Medications Home Medications: Home Medications Medication Instructions Recorded Confirmed Last Taken Type Acetaminophen/Codeine 1 tab PO Q6H PRN #20 tab 01/14/14 09/04/19 Rx [Acetaminophen-Codeine #3 TAB] Amoxicillin [Trimox CAP] 500 mg PO Q8H #30 capsule 01/14/14 09/04/19 Rx Butalb/Acetaminophen/Caffeine 1 cap PO Q8HR PRN #20 cap 04/08/16 07/05/19 Rx [Fioricet 50-300-40 mg CAP] Acetaminophen [Acetaminophen TAB] 1,000 mg PO Q6HR PRN #20 tablet 12/02/16 09/04/19 Rx Ibuprofen [Motrin 400 MG tab] 400 mg PO Q8H PRN #20 tablet 12/02/16 09/04/19 Rx Ondansetron [Zofran TAB] 4 mg PO Q8HR PRN #15 tablet 12/02/16 10/16/19 10/05/19 Rx Acetaminophen [Tylenol] 650 mg PO Q6HR PRN #30 tablet 04/02/19 09/05/19 Rx metFORMIN 500 mg PO BID 08/12/20 08/12/20 08/12/20 09:00 History Ibuprofen [Motrin 800 MG tab] 800 mg PO Q8HR PRN #30 tablet 11/03/21 Unknown Rx guaiFENesin [Guaifenesin] 400 mg PO Q8H PRN #20 tab 11/03/21 Unknown Rx ED Physical Exam - General Limitations: No Limitations General appearance: alert, in no apparent distress - Head Head exam: Present: normocephalic, normal inspection - Eye Eye exam: Present: PERRL, EOMI Pupils: Present: normal accommodation - ENT ENT exam: Present: normal orophraynx, mucous membranes moist - Neck Neck exam: Present: normal inspection, full ROM. Absent: tenderness, lymphadenopathy, thyromegaly - Respiratory Respiratory exam: Present: normal lung sounds bilaterally, chest wall tenderness (Anterior chest wall no crepitus no step-off no ecchymosis no deformity). Absent: wheezes, stridor - Cardiovascular Cardiovascular Exam: Present: regular rate, normal rhythm, normal heart sounds. Absent: systolic murmur, diastolic murmur, rubs, gallop - GI/Abdominal GI/Abdominal exam: Present: soft, normal bowel sounds. Absent: distended, t enderness - Rectal Rectal exam: Present: deferred - Extremities Exam Extremities exam: Present: normal inspection, full ROM, normal capillary refill. Absent: tenderness, pedal edema - Back Exam Back exam: Present: normal inspection, full ROM. Absent: CVA tenderness (R), CVA tenderness (L) - Neurological Exam Neurological exam: Present: alert, oriented X3, CN II-XII intact, normal gait - Expanded Neurological Exam Expanded Patient oriented to: Present: person, place, time Speech: Present: fluid speech Motor strength exam: RUE: 5, LUE: 5, RLE: 5, LLE: 5 Best Eye Response ([place]): (4) open spontaneously Best Motor Response ([place]): (6) obeys commands Best Verbal Response ([place]): (5) oriented [place] Total: 15 - Psychiatric Psychiatric exam: Present: normal affect, normal mood - Skin Skin exam: Present: warm, dry, intact, normal color. Absent: rash ED Course Vital Signs 11/02/21 21:03 Temperature 98.3 F Pulse Rate 69 Respiratory 18 Rate Blood Pressure 122/79 [Right] O2 Sat by Pulse 98 Oximetry ED Medical Decision Making - Lab Data Result diagrams: 11/02/21 21:57 11/02/21 21:57 Labs 11/02/21 11/02/21 21:57 21:57 WBC 9.8 RBC 3.99 Hgb 13.1 Hct 38.5 MCV 97 MCH 33 H MCHC 34 RDW 13.0 L Plt Count 396 Lymph % (Auto) 19.7 [place] % (Auto) 5.0 Eos % (Auto) 3.4 Baso % (Auto) 0.7 Lymph # (Auto) 1.9 [place] # (Auto) 0.5 Eos # (Auto) 0.3 Baso # (Auto) 0.1 Seg Neutrophils % 71.2 H Seg Neutrophils # 7.0 Sodium 142 Potassium 4.4 Chloride 107.1 H Carbon Dioxide 22 Anion Gap 17 BUN 13 Creatinine 0.6 Estimated GFR > 60 BUN/Creatinine Ratio 22 Glucose 153 H Calcium 9.2 Troponin T < 0.010 - EKG Data EKG shows normal: sinus rhythm, axis, intervals, QRS complexes, ST-T waves Rate: normal - EKG Data Interpretation: normal EKG (Normal sinus rhythm no ST elevated MN interpreted by ED attending) - Radiology Data Radiology results: report reviewed, image reviewed CHEST 2 VIEWS INDICATION / CLINICAL INFORMATION: Chest Pain. COMPARISON: 12/02/2016 FINDINGS: SUPPORT DEVICES: None. HEART / MEDIASTINUM: No significant abnormality. LUNGS / PLEURA: No significant pulmonary or pleural abnormality. No pneumothorax. ADDITIONAL FINDINGS: Safety pin seen at the level of the neck on frontal view is present with external to the patient. IMPRESSION: 1. No acute findings. Signer Name: Gregorio Ramos MD Signed: 11/02/2021 10:13 PM Workstation Name: [id number] Transcribed By: Dictated By: GREGORIO RAMOS MD Electronically Authenticated By: GREGORIO RAMOS MD Signed Date/Time: 11/02/212212 DD/ 11 TD/TT: - Medical Decision Making EKG normal sinus rhythm no ST elevated MN, heart score 0 CLARISSE score 0, chest x- ray normal no infiltrates no opacities, labs noted nonactionable. Chest wall pain is reproducible to palpation there is no crepitus ecchymosis or step-off lung sounds are clear throughout. There is no wheezes or stridor patient alert oriented x3 patient is ambulatory and with steady gait with no acute distress. Plan NSAIDs as needed pain. Follow-up with primary care doctor in 2 to 3 days. Critical care attestation.: If time is entered above; I have spent that time in minutes in the direct care of this critically ill patient, excluding procedure time. ED Disposition Clinical Impression: Chest wall pain Disposition: 01 HOME / SELF CARE / HOMELESS Is pt being admited?: No Does the pt Need Aspirin: No Condition: Stable Instructions: Chest Wall Pain, [id number], Steps to Quit Smoking Additional Instructions: Take medications as prescribed, follow-up with your doctor in 2 to 3 days. Smoking cessation strongly consider, turn to emergency department should symptoms worsen Prescriptions: guaiFENesin [Guaifenesin] 400 mg PO Q8H PRN #20 tab PRN Reason: Cough Ibuprofen [Motrin 800 MG tab] 800 mg PO Q8HR PRN #30 tablet PRN Reason: Pain Referrals: [facility] [Provider Group] - 3-5 Days Forms: Work/School Release Form(ED) Time of Disposition: 01:02
[2021-11-03 01:19] VITALS: BP 126/81
--- NOTE | 2021-11-03 18:11 | Electrocardiograph Report ---
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
== END 2021-11-03 01:19 | disposition home or self-care (01) ==
LOC: ED 18:35
DX: R07.89 Other chest pain (principal); Z88.6 Allergy status to analgesic agent; Z79.899 Other long term (current) drug therapy
CPT/HCPCS: 36415; 71046; 80048; 84484; 85025; 93005; 99284